=== PATIENT | male | born 1975 | race African-American/Black ===

== ENCOUNTER 2017-10-08 14:31 | Emergency (ER) | payer SELFPAY ==
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
--- NOTE | 2017-10-09 06:56 | CR ---
Right wrist: Two views of the right wrist were obtained. Comparison: No previous study. Joint spaces are preserved. No fracture or other bony abnormality is seen. Impression: 1. No abnormality is seen on two-view right wrist exam. Diagnostic code #1
--- NOTE | 2017-10-09 06:56 | CR ---
Left wrist: Three views of the left wrist were obtained. Comparison: No previous study. Well corticated bony density is seen off the ulnar styloid process which is felt compatible with old injury. Joint spaces within the wrist are maintained. No acute fracture or other bony abnormality is seen. Impression: 1. Old injury as noted above. Nothing acute is seen on left wrist exam. Diagnostic code #2
== END 2017-10-08 16:55 | disposition home or self-care (01) ==
LOC: JD.ED 14:31
DX: M25.532 Pain in left wrist (principal); M25.531 Pain in right wrist; F17.210 Nicotine dependence, cigarettes, uncomplicated
CPT/HCPCS: 73100-26-LT; 73100-26-RT; 73100-LT; 73100-RT; 99283